=== PATIENT | female | born 1990 | race Caucasian/White ===

== ENCOUNTER 2025-02-03 15:20 | Emergency (ER) | payer OTHER, SELFPAY ==
[2025-02-03 15:32] VITALS: BP 108/86; PULSE 99; RESP 16; TEMP 36.5; O2SAT 98
--- NOTE | 2025-02-03 15:58 | ED_ITS ---
HPI - Wound/Laceration General Chief Complaint: Wound/Laceration Stated Complaint: R HIP LACERATION Time Seen by Provider: 02/03/25 15:58 Source: patient Mode of arrival: ambulatory Limitations: no limitations History of Present Illness HPI narrative: 34-year-old female with Laceration to lateral aspect of right upper thigh. 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 Unknown last tetanus. Bleeding controlled. All systems reviewed and negative except as noted above. Related Data Home Medications ?Medication ?Instructions ?Recorded ?Confirmed ?Last Taken ?Type Adderall 02/03/25 Unknown History Lamictal 02/03/25 Unknown History Wellbutrin 02/03/25 Unknown History Xanax 02/03/25 Unknown History citalopram 02/03/25 Unknown History propranolol 02/03/25 Unknown History Allergies Allergy/AdvReac Type Severity Reaction Status Date / Time No Known Allergies Allergy Unverified 12/09/13 14:59 Review of Systems Review of Systems: CONSTITUTIONAL: Denies fever, chills, or sweats. EYES: Denies visual changes, redness, or discharge. ENT: Denies rhinorrhea, congestion, sore throat, or otalgia. CARDIOVASCULAR: Denies chest pain, palpitations, or edema. RESPIRATORY: Denies cough or dyspnea. GASTROINTESTINAL: Denies abdominal pain, nausea, vomiting, or diarrhea. GENITOURINARY: Denies dysuria or hematuria. SKIN: Denies rash or itching. Laceration to right thigh MUSCULOSKELETAL: Denies back pain, joint pain, or myalgia. NEUROLOGIC: Denies headache, numbness, or weakness. PSYCHIATRIC: Denies anxiety or depression. All other systems reviewed are negative, except as documented in HPI. PMFSH Comments At time of signature, agree with nursing past medical, surgical, social and family history. There is no relevant family history pertinent to the presenting complaint. Exam Narrative: GENERAL: This is a well-nourished, well-developed patient, in no apparent distress. HEAD: normocephalic, atraumatic. EYES: PERRL. Sclera clear/white. Vision is grossly intact. EARS: External ears normal NOSE: External nose normal NECK: Neck supple, non-tender without lymphadenopathy, masses or thyromegaly. CARDIOVASCULAR: Regular rate and rhythm without murmurs, gallops, or rubs. RESPIRATORY: Clear to auscultation. Breath sounds equal bilaterally. No wheezes, rales, or rhonchi. SKIN: warm, Dry, with no suspicious lesions or rash, good texture and turgor. Laceration to lateral aspect of right upper thigh approximate 2 cm x 0.5cm NEURO: awake, alert, and oriented to person, place and time. There were no obvious focal neurologic abnormalities. EXTREMITIES: No joint tenderness, effusion, or edema noted. Course Course Level of Care: Express Care Visit Vital Signs Vital signs: Vital Signs Temperature 36.5 C 02/03/25 15:32 Pulse Rate 99 02/03/25 15:32 Respiratory Rate 16 02/03/25 15:32 Blood Pressure 108/86 02/03/25 15:32 Pulse Oximetry 98 02/03/25 15:32 Temperature 36.5 C 02/03/25 15:32 Pulse Rate 99 02/03/25 15:32 Respiratory Rate 16 02/03/25 15:32 Blood Pressure 108/86 02/03/25 15:32 Pulse Oximetry 98 02/03/25 15:32 Reviewed Procedures Laceration Laceration 1: Date: 02/03/25 Time: 16:15 Site: lower extremity (Thigh) Side (If applicable): right Size (cm): 2 Description: irregular and clean Depth: simple, single layer Local Anesthetic: lidocaine 1% Amount of anesthesia used (mL): 4 Pre-repair: wound explored and irrigated ====== Skin Level ====== Skin layer closed with: nylon Size (cm): 4-0 Number of sutures: 8 Technique: simple, interrupted ====== Subcutaneous Layer ====== ====== Muscle Layer ====== ====== Tendon Layer ====== Dressing: bandaid MDM - Wound/Laceration MDM Narrative Medical decision making narrative: Laceration to right thigh sutured. Patient tolerated well. Recommend follow-up in 10 days for removal. Please be advised this is a medical document. It is intended for [id number] communication. It is written in medical language and may contain unfamiliar abbreviations or verbiage. Medical documents are intended to carry relevant information, facts as evident, and the clinical opinion of the practitioner at the time of the encounter. This report may have been done utilizing a voice recognition system. Attempts wasserman ve been made to correct errors. However, there may be uncorrected grammatical, spelling, and recognition errors present. The file time of this note does not necessarily represent the time of service. Discharge Plan Discharge Clinical Impression: Laceration of right thigh Qualifiers: Encounter type: initial encounter Qualified Code(s): S71.111A - Laceration without foreign body, right thigh, initial encounter Patient Disposition: Home Condition: Stable Instructions: Care For Your Stitches (ED), Laceration (ED) Additional Instructions: Follow-up in 10 days to have sutures removed. Keep laceration clean and dry. May apply Aquaphor or Vaseline twice a day. Avoid bathtub, hot tub, pool until wound is healed. If you have signs of infection such as redness, swelling, drainage, odor follow- up with your primary care physician. Patient Language: [place] Prescriptions: No Action Lamictal citalopram Wellbutrin Adderall Xanax propranolol Follow-up/Referrals: Edison,MD Willy [Primary Care Provider] - Time of Disposition: 16:28
[2025-02-03] MEDS: TETANUS,DIPHTHERIA,AC PERTUSSIS ADULT (0.5 ML) BOOSTRIX IM (16:10)
== END 2025-02-03 16:32 | disposition home or self-care (01) ==
PROVIDERS: Emergency Provider Nurse Practitioner Family; PCP Internal Medicine
DX: S71.111A Laceration without foreign body, right thigh, initial encounter (principal); W26.8XXA Contact with other sharp object(s), not elsewhere classified, initial encounter; Z23 Encounter for immunization
CPT/HCPCS: 12001; 90471; 90715; 99212; G0463; J2003